=== PATIENT | female | born 1975 | race Caucasian/White ===

== ENCOUNTER 2019-07-13 08:31 | Observation (INO) | payer BC ==
[~2019-07-13 08:31] MED LIST: Buffered Lidocaine 1% SYRIN* 1 ML/SYRINGE INTRADERM ONE; Lactated Ringers 1000 ML Bag* 1,000 ML IV SCH
[2019-07-13] MEDS ORDERED: Midazolam* 1 MG/ML 2 ML VIAL (2 MG) ONE (08:34)
[2019-07-13] MEDS ORDERED: Lidocaine 2% PF * 5 ML VIAL ONE (08:34)
[2019-07-13] MEDS ORDERED: Propofol* 10 MG/ML 20 ML BTL ONE ×2 (08:34→12:38)
[2019-07-13] MEDS ORDERED: Rocuronium* 10 MG/ML VIAL ONE ×2 (08:35→12:14)
[2019-07-13] MEDS ORDERED: fentaNYL* 50 MCG/ML 2 ML VIAL (100 MCG VIAL) ONE (08:35)
[2019-07-13] MEDS ORDERED: ceFAZolin 2 GM in NS PREMIX(*) 2 GM/100 ML BAG IVPB ONE (09:22)
[2019-07-13] MEDS ORDERED: Buffered Lidocaine 1% SYRIN* 1 ML/SYRINGE INTRADERM ONE (09:22)
[2019-07-13] MEDS ORDERED: Dexamethasone IV* 4 MG/ML 1 ML (4 MG) ONE (11:13)
[2019-07-13] MEDS ORDERED: Ondansetron INJ* 2 MG/ML VIAL ONE (11:13)
[2019-07-13] MEDS ORDERED: Ketorolac INJ* 30 MG/ML 1 ML VIAL ONE (11:13)
[2019-07-13] MEDS ORDERED: Metoclopramide IV* 5 MG/ML 2 ML VIAL ONE (11:13)
[2019-07-13] MEDS ORDERED: oxyCODONE TAB* 5 MG TAB PO PRN (11:36)
[2019-07-13] MEDS ORDERED: DiMENhydriNATE IV* 50 MG/ML VIAL IV PUSH PRN (11:36)
[2019-07-13] MEDS ORDERED: Naloxone* 0.4 MG/ML 1 ML VIAL IV PRN (11:36)
[2019-07-13] MEDS ORDERED: fentaNYL* 50 MCG/ML 2 ML VIAL (100 MCG VIAL) IV PRN (11:36)
[2019-07-13] MEDS ORDERED: Sugammadex * 200 MG/2 ML VIAL IV PUSH ONE (12:38)
[2019-07-13] MEDS ORDERED: Acetaminophen IV 1GM/100ML * 100 ML ONE (12:38)
[2019-07-13] MEDS ORDERED: Ondansetron INJ* 2 MG/ML VIAL IV PRN (13:20)
[2019-07-13] MEDS ORDERED: oxyCODONE/Acetamin 5/325 MG* TAB PO PRN (13:20)
[2019-07-13] MEDS ORDERED: Docusate CAP* 100 MG PO PRN (13:25)
[2019-07-13] MEDS ORDERED: Simethicone TAB* 80 MG TAB.CHEW PO PRN (13:25)
[2019-07-13] MEDS ORDERED: Ibuprofen TAB* 600 MG ONE (14:12)
[2019-07-13] MEDS: Ibuprofen TAB* 600 MG PO PRN ×2 (14:13→20:54)
[2019-07-13] MEDS: Lactated Ringers 1000 ML Bag* 1,000 ML IV SCH ×2 (15:07→23:03)
[2019-07-13 15:50] LABS: Urine Appearance Clear; Urine Bilirubin Negative (Negative); Urine Blood Negative (Negative); Urine Color Yellow; Urine Glucose Negative (Negative); Urine Ketones Trace (Negative); Urine Nitrite Negative (Negative); Urine Protein Negative (Negative); Urine Specific Gravity 1.036 (1.010-1.030); Urine Urobilinogen Negative (Negative)
[2019-07-14] MEDS: Ibuprofen TAB* 600 MG PO PRN ×2 (03:20→09:40)
[2019-07-14 06:04] LABS: ABS Lymphocytes 1.4 10^3/ul (1.0-4.8); ABS Monocytes 0.4 10^3/ul (0-0.8); ABS Neutrophils 4.7 10^3/ul (1.5-7.7); Eosinophil % 0.3 %; Hematocrit 31 % (35-47); Lymphocyte % 20.8 %; Mean Corpuscular HGB Conc 33 g/dL (31-36); Mean Corpuscular Hemoglobin 28 pg (27-31); Mean Corpuscular Volume 84 fL (80-97); Mean Platelet Volume 8.5 fL (7.4-10.4); Platelet Count 187 10^3/uL (150-450); Red Blood Count 3.65 10^6 /uL (3.70-4.87); Red Cell Distribution Width 19 % (10-15); White Blood Count 6.5 10^3/uL (3.5-10.8)
[2019-07-14] MEDS: Lactated Ringers 1000 ML Bag* 1,000 ML IV SCH (07:01)
[2019-07-14 07:45] VITALS: BP 128/81
--- NOTE | 2019-07-14 09:11 | PN ---
Progress Note - Progress Note Date of Service: 07/14/19 SOAP: Subjective: [Patient is comfortable, denies pain, nausea/vomiting, chest pain or shortness of breath. She is tolerating a regular diet and passinbg flatus.] Objective: [ Vital Signs Temp Pulse Resp BP Pulse Ox 98.6 F 66 16 128/81 100 07/14/19 07:25 07/14/19 07:25 07/14/19 08:00 07/14/19 07:25 07/14/19 07:55 Laboratory Results - last 24 hr 07/13/19 07/14/19 15:20 05:18 WBC 6.5 RBC 3.65 L Hgb 10.0 L Hct 31 L MCV 84 MCH 28 MCHC 33 RDW 19 H Plt Count 187 MPV 8.5 Neut % (Auto) 72.0 Lymph % (Auto) 20.8 Orange % (Auto) 6.5 Eos % (Auto) 0.3 Baso % (Auto) 0.4 Absolute Neuts (auto) 4.7 Absolute Lymphs (auto) 1.4 Absolute Monos (auto) 0.4 Absolute Eos (auto) 0.0 Absolute Basos (auto) 0.0 Absolute Nucleated RBC 0.0 Nucleated RBC % 0.0 Urine Color Yellow Urine Appearance Clear Urine pH 6.0 Ur Specific Jackson 1.036 H Urine Protein Negative Urine Ketones Trace A Urine Blood Negative Urine Nitrate Negative Urine Bilirubin Negative Urine Urobilinogen Negative Ur Leukocyte Esterase Negative Urine Glucose Negative Urine Ascorbic Acid * A Lungs CTA b/l CV RRR Abdomen Soft, not tender, mild distension, normal bowel sounds. Laparoscopy incisions are clean/dry/intact with non discharge or erythema.] Assessment: [Stable post operative recovery.] Plan: [Discharge Home. Follow up at my office in 1 week.]
--- NOTE | 2019-07-21 12:58 | OP ---
CC: Dr. Dick Lovelace, [facility] * DATE OF OPERATION: 07/13/19 - ROOM #334 DATE OF : 71 SURGEON: Freeman Warren MD. [employer] SURGEON: Dick Lovelace MD. ANESTHESIA: General anesthetic with endotracheal intubation. PRE-OP DIAGNOSES: Chronic pelvic pain, severe dysmenorrhea, and abnormal uterine bleeding. POST-OP DIAGNOSES: Chronic pelvic pain, severe dysmenorrhea, and abnormal uterine bleeding. Pending pathology. OPERATIVE PROCEDURE: Laparoscopic supracervical hysterectomy and bilateral salpingectomy. ESTIMATED BLOOD LOSS: 100 cc. SPECIMEN SENT TO PATHOLOGY: Morcellated uterus along with bilateral fallopian tubes. FLUIDS: The patient received 1200 cc of IV crystalloid fluid. URINE OUTPUT: 400 cc of clear urine. FINDINGS: Laparoscopically revealed a normal uterus with normal tubes and ovaries bilaterally. Filshie clips were noted to be applied at fallopian tubes from a prior tubal ligation. There was normal bowel and bladder and there were no complications during this procedure. DESCRIPTION OF PROCEDURE: The patient was taken to the operating room where she was identified. She was placed on operating table where general anesthetic with endotracheal intubation was obtained without difficulty. She was then placed in the dorsal lithotomy position, prepped and draped in normal sterile fashion. Attention was then brought on to the patient's perineum and the bladder was catheterized with a Gandhi catheter and drained of clear urine. Into the vagina a side-viewing speculum was introduced. The cervix was identified, grasped with a single-tooth tenaculum and through the cervix a ClearView uterine manipulator was introduced and the balloon and the manipulator was insufflated with 3 cc of sterile water. The single-tooth tenaculum and the speculum were then removed from the patient's vagina. Attention was then brought on to the patient's abdomen where an infraumbilical skin incision was made with a knife, carried through the underlying layer of fascia. The fascia was then grasped with Heriberto clamps and brought up to the incision, incised vertically medially and the Heriberto clamps were then replaced with 0 Polysorb sutures. The umbilical fascial incision was extended to about 3 cm. Through this umbilical incision, a GelPOINT single site trocar was introduced to introduce laparoscopic scope. The patient was then placed in the Trendelenburg position and a survey of the patient's pelvic anatomy revealed findings as noted above. At this point, 2 trocars were introduced at the right and left upper quadrant of the patient's abdomen under direct visualization. We then proceeded with our procedure. Initiatively, we removed the Filshie clips that were applied to the fallopian tubes bilaterally. These were removed from the patient's abdomen. We then proceeded with bilateral salpingectomy using LigaSure cautery and cutting and were able to remove the fallopian tubes bilaterally and they were removed from the patient's abdomen. We then proceeded to grasp the round ligaments bilaterally with LigaSure. These were then coagulated and transected. A window was then made in the anterior leaf of the broad ligament. The uteroovarian ligaments were then also grasped and coagulated and transected bilaterally. The window in the anterior leaf of the broad ligament was then incised inferiorly using a combination of coagulation and sharp dissection. Bladder flap was created mobilizing the bladder away from the lower uterine segment. The uterine arteries were then grasped bilaterally at the superior aspect with the LigaSure. They were then coagulated. They were then grasped bilaterally at the uterocervical junction and they were also coagulated there and the uterine arteries lateral to the cervix were then grasped, coagulated, and transected. At this point, we noted the uterus was devoid of any vasculature and it looked pale due to the decreased blood flow. We then proceeded to introduce a SupraLoop into the patient's abdomen. The SupraLoop was then wrapped around the cervicouterine junction. It was set at 100% pure-cut setting. The uterine manipulator was removed from the patient's cervix and vagina. At this point, the SupraLoop was then charged and the uterus was then decapitated from the cervix. The cervix was noted to be completely hemostatic at this point. We then proceeded to remove the uterus in an Endobag. The bag was brought up through the umbilical incision and the uterus was morcellated within the bag using a pair of Granda scissors. Once the uterus was completed morcellated, it was removed from the patient's abdomen and sent to Pathology. We then proceeded to take a second look at the surgical pedicles. These were noted to be completely hemostatic as well as the cervix. The pelvis was then irrigated with normal saline. Normal saline was also suctioned. Again, the pedicles were noted to be completely dry. The trocars in the right and left upper quadrants of the patient's abdomen were removed under direct visualization. There was no bleeding noted. The GelPOINT trocar was removed. The fascia of the umbilicus was closed using 0 Polysorb suture in a running fashion and all the skin incisions were also closed using 4-0 Monocryl in a subcuticular stitch. The patient tolerated the procedure well. Sponge, lap, needle counts were correct x2. She was then transferred to recovery room area in stable condition. [id number]/[facility] #: [id number] F [facility] H[facility]PITALMango
== END 2019-07-14 10:00 | disposition home or self-care (01) ==
LOC: OR 08:31 → SSU 13:20
PROVIDERS: ADMIT Obstetrics & Gynecology; ATTEND Obstetrics & Gynecology
DX: N94.5 Secondary dysmenorrhea (principal); R10.2 Pelvic and perineal pain; N92.1 Excessive and frequent menstruation with irregular cycle; Z98.51 Tubal ligation status; G89.29 Other chronic pain
CPT/HCPCS: 36415; 81003; 85025; 88307; 96360; 96361; A9270-GY; G0378; J0690; J1100; J1885; J2250; J2405; J2704; J2765; J3010